=== PATIENT | male | born 1980 | race Caucasian/White ===

== ENCOUNTER 2023-02-17 12:22 | Emergency (ER) | payer OTHER, SELFPAY ==
--- NOTE | ~2023-02-17 | XR_ITS ---
XR finger 5th RT min 2V 02/17/2023 12:50 Indication: Trauma to the right fifth finger Procedure: 4 views right fifth finger Comparison: No prior studies for comparison. Findings: There is a minimally displaced comminuted tuft fracture right fifth distal phalanx. Mild so ft tissue swelling. No foreign bodies. Impression: 1: Minimally displaced comminuted tuft fracture right fifth distal phalanx. Reviewed, dictated and finalized at location B. Impression: 1: Minimally displaced comminuted tuft fracture right fifth distal phalanx.
--- NOTE | 2023-02-17 12:26 | ED.UPPEXIN ---
HPI - Extremity Injury (Upper) General Chief Complaint: Extremity Injury, Upper Stated Complaint: Smashed finger Time Seen by Provider: 02/17/23 12:26 Source: patient Mode of arrival: ambulatory Limitations: no limitations History of Present Illness HPI narrative: Patient is a 42-year-old male who presents with pain to tip of right pinky finger after getting it smashed between 2 readers. Patient reports swelling and pain to tip of finger. Denies any decrease in sensation. Reports there was bleeding around his nail and the nail feels loose. Unsure of last tetanus shot Related Data Home Medications Medication Instructions Recorded Confirmed omeprazole 20 mg delayed 20 mg PO DAILY 02/17/23 02/17/23 release,disintegrating tablet Allergies Allergy/AdvReac Type Severity Reaction Status Date / Time sulfamethizole Allergy Unknown Hives Verified 02/17/23 12:36 trimethoprim Allergy Unknown Hives Verified 02/17/23 12:36 Review of Systems Review of Systems: All systems reviewed & are unremarkable except as noted in HPI and below Constitutional: Constitutional: Denies body ache(s), Denies chills, Denies fatigue, Denies fever(s), Denies headache(s), Denies malaise and Denies weakness Eyes: Eyes: Denies blurry vision, Denies irritation and Denies loss of vision ENT: Denies otalgia, Denies headache(s), Denies nasal discharge, Denies sinus pain and Denies sore throat Cardiovascular: Cardiovascular: Denies chest pain, Denies irregular heart rhythm and Denies dyspnea Respiratory: Respiratory: Denies dyspnea Gastrointestinal: Gastrointestinal: Denies abdominal pain, Denies melena, Denies hematochezia, Denies diarrhea, Denies nausea and Denies vomiting Musculoskeletal: Musculoskeletal: Denies back pain, Denies myalgias, Reports arthralgias and Reports joint swelling Integumentary/Breasts: Skin/Breast: Denies pruritus and Denies rash Neurologic: Denies headache(s), Denies loss of vision and Denies weakness Psychiatric: Psychiatric: Reports no additional psychiatric complaints Endocrine: Endocrine: Denies fatigue PMFSH Family History Family History Father Hypertension Mother Hypertension Family history of elevated blood lipids Other Cerebrovascular accident Diabetes mellitus Family history of blood dyscrasia Social History Social History Alcohol intake: current Comments At time of signature, agree with nursing past medical, surgical, social and family history. There is no relevant family history pertinent to the presenting complaint. Exam Const: General: cooperative, healthy appearing, comfortable, no acute distress and well nourished Nutritional Appearance: well nourished Orientation/consciousness: patient oriented x3 Limitations: no limitations HENMT: Head: normal to inspection, normocephalic and atraumatic Ears: hearing grossly normal bilaterally and external ears normal Face/Nose/Sinus: Normal external nose present, normal facial exam and face symmetric Face and sinus: normal facial exam and face symmetric Mouth: Yes lip normal Eyes: General: appearance normal, both eyes and all related structures Alignment and Position: alignment normal and position normal Periorbital: periorbital findings normal Eyelids: eyelids normal Pupils: Equal, round and reactive pupils present EOM: EOMs intact bilaterally Neck: Neck: normal visual inspection, full ROM and supple Chest: Chest palpation & inspection: normal inspection of the chest Resp: Effort & Inspection: normal respiratory effort and able to speak in complete sentences Auscultation: clear to auscultation bilaterally Cardio: Rate: regular rate Rhythm: regular rhythm Heart sounds: S1 normal heart sound present and S2 normal heart sound present GI: Inspection: normal to inspection Skin: General skin exam: normal color and no rashes o
[2023-02-17 12:33] VITALS: BP 136/89; PULSE 85; RESP 16; TEMP 36.6; O2SAT 100
[2023-02-17 12:37] VITALS: BP 136/89; PULSE 85; RESP 16; TEMP 36.6; O2SAT 100
[2023-02-17] MEDS: TETANUS,DIPHTHERIA,AC PERTUSSIS ADULT (0.5 ML) BOOSTRIX IM (13:41)
== END 2023-02-17 13:46 | disposition home or self-care (01) ==
PROVIDERS: Emergency Provider Nurse Practitioner Family
DX: S62.626A Displaced fracture of middle phalanx of right little finger, initial encounter for closed fracture (principal); Z79.899 Other long term (current) drug therapy; Z23 Encounter for immunization; W23.0XXA Caught, crushed, jammed, or pinched between moving objects, initial encounter
CPT/HCPCS: 29130; 73140; 90471; 90715; 99214; G0463